=== PATIENT | female | born 1935 | race Caucasian/White ===

== ENCOUNTER 2019-08-01 08:27 | Emergency (ER) | payer OTHER ==
[~2019-08-01] VITALS: Ht 157.5 cm; Wt 68.9 kg
--- NOTE | 2019-08-01 08:31 | NUR ---
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 No trauma. Low BP (70/40) prior to arrival to ER, IV NS given in the field, BP now is 109/53. RR is even and unlabored with nad noted. skin is warm and dry. Awaiting md for eval.
[2019-08-01] MEDS ORDERED: IV NS 0.9% 500 ML BAG IV ONE (09:00)
[2019-08-01 09:05] LABS: BASOPHILS % (AUTO) 0.5 % (0.0-2.0); EOSINOPHILS % (AUTO) 2.4 % (0.0-6.0); HEMATOCRIT 35 % (33-45); HEMOGLOBIN 11.7 g/dL (11.5-14.8); LYMPHOCYTES % (AUTO) 28.4 % (20.0-44.0); MEAN CORPUSCULAR HGB CONC 34 g/dl (31.0-36.0); MEAN CORPUSCULAR VOLUME 94 fL (82-100); MONOCYTES % (AUTO) 14.3 % (2.0-12.0); NEUTROPHILS # (AUTO) 3.9 /CMM (1.8-8.9); NEUTROPHILS % (AUTO) 54.4 % (43.0-81.0); PLATELET COUNT (AUTO) 225 /CMM (150-450); WHITE BLOOD COUNT (AUTO) 7.1 K/uL (4.3-11.0)
[2019-08-01] MEDS ORDERED: MULT-15 PO (09:11)
[2019-08-01] MEDS ORDERED: DIME50TA25 PO (09:11)
[2019-08-01] MEDS ORDERED: HYDR28.32 TP (09:11)
[2019-08-01] MEDS ORDERED: DOCU-141 PO (09:11)
[2019-08-01] MEDS ORDERED: SENN-168 PO (09:11)
[2019-08-01] MEDS ORDERED: CALC-7 PO (09:11)
[2019-08-01] MEDS ORDERED: GABA-532 PO (09:11)
[2019-08-01] MEDS ORDERED: POLY15DR40 EACHEYE (09:11)
[2019-08-01] MEDS ORDERED: TROS20TA3 PO (09:11)
[2019-08-01] MEDS ORDERED: MELA3TAB63 PO (09:11)
[2019-08-01] MEDS ORDERED: HYDR-4354 PO (09:11)
[2019-08-01] MEDS ORDERED: FAMO-131 PO (09:11)
[2019-08-01] MEDS ORDERED: NALO4SPR (09:11)
[2019-08-01] MEDS ORDERED: ASPI-1152 PO (09:11)
[2019-08-01] MEDS ORDERED: ESCI10TA PO (09:11)
[2019-08-01] MEDS ORDERED: LORA-258 PO (09:11)
[2019-08-01] MEDS ORDERED: OLAN2.5T3 PO (09:11)
[2019-08-01] MEDS ORDERED: OLAN5TAB3 PO (09:11)
[2019-08-01] MEDS ORDERED: LATA2.5D7 EACHEYE (09:11)
[2019-08-01] MEDS ORDERED: BUPR75TA21 PO (09:11)
[2019-08-01] MEDS ORDERED: ATOR40TA PO (09:11)
[2019-08-01] MEDS ORDERED: ACET-2605 PO (09:11)
[2019-08-01] MEDS ORDERED: LEVO75TA7 PO (09:11)
[2019-08-01] MEDS ORDERED: TRAZ-182 PO (09:11)
[2019-08-01 09:14] LABS: CALCIUM, SERUM 9.2 mg/dL (8.5-10.1); CARBON DIOXIDE 29 mmol/L (21-32); CHLORIDE 105 mmol/L (98-107); CREATININE 1.9 mg/dL (0.6-1.3); GLUCOSE 99 mg/dL (74-106); POTASSIUM 4.3 mmol/L (3.5-5.1); SODIUM SERUM 140 mmol/L (136-145); UREA NITROGEN, BLOOD 32 mg/dL (7-18)
[2019-08-01 09:20] LABS: ALANINE AMINOTRANSFERASE 21 U/L (12-78); ALBUMIN 3.1 g/dL (3.4-5.0); ALKALINE PHOSPHATASE 71 U/L (46-116); ASPARTATE AMINOTRANSFERASE 23 U/L (15-37); BILIRUBIN,DIRECT 0.1 mg/dL (0.0-0.2); BILIRUBIN,TOTAL 0.4 mg/dL (0.2-1.0); TOTAL PROTEIN, SERUM 6.2 g/dL (6.4-8.2)
--- NOTE | 2019-08-01 09:34 | NUR ---
INTELLIGENCE SPECIALIST AT BEDSIDE
--- NOTE | 2019-08-01 10:50 | NUR ---
IV removed. Catheter intact and site benign. Pressure and 4x4 applied to site. No bleeding noted. Patient discharged together with POA Delmi Anderson to in stable condition. POA will bring the patient back to [facility]. Written and verbal after care instructions given. Patient and POA verbalizes understanding of instruction.
[2019-08-01 10:57] VITALS: BP 135/71
== END 2019-08-01 10:58 ==
LOC: ER 08:28
DX: R55 Syncope and collapse (principal); I10 Essential (primary) hypertension; I48.91 Unspecified atrial fibrillation; Z98.890 Other specified postprocedural states; Z88.8 Allergy status to other drugs, medicaments and biological substances; Z88.0 Allergy status to penicillin; Z88.2 Allergy status to sulfonamides; Z79.899 Other long term (current) drug therapy; Z79.82 Long term (current) use of aspirin
CPT/HCPCS: 36415; 71045; 80048; 80076; 84484; 85025; 93005 ×2; 96360; 99284; J7040